=== PATIENT | male | born 1955 | race Caucasian/White ===

== ENCOUNTER 2017-12-25 18:48 | Emergency (ER) | payer OTHER ==
[~2017-12-25] VITALS: Ht 185.4 cm; Wt 117.9 kg
[2017-12-25] MEDS ORDERED: VERAPAMIL ER120 MG (19:20)
[2017-12-25] MEDS ORDERED: CRESTOR10 MG (19:20)
[2017-12-25] MEDS ORDERED: LOSARTAN POTASS25 MG (19:20)
[2017-12-25] MEDS ORDERED: METHYLPREDNISOLONE SOD SUCC 125 MG/2ML VIAL IM ONE (19:30)
== END 2017-12-25 19:25 | disposition home or self-care (01) ==
LOC: FSED 18:48
DX: L25.5 Unspecified contact dermatitis due to plants, except food (principal); I10 Essential (primary) hypertension
CPT/HCPCS: 99282; J2930

== ENCOUNTER 2024-04-22 22:12 | Emergency (ER) | payer MEDICARE, OTHER ==
[~2024-04-22] VITALS: Ht 185.4 cm; Wt 120.7 kg
[~2024-04-22 22:12] MED LIST: CRESTOR10 MG; LOSARTAN POTASS25 MG; VERAPAMIL ER120 MG
[2024-04-22 22:39] VITALS: PULSE 59; RESP 18; TEMP 100.3
[2024-04-22] MEDS: DEXAMETHASONE SOD PHOS INJ 4 MG/ML SDV IM ONE (23:37)
[2024-04-22] MEDS: LEVOFLOXACIN 500 MG TAB PO ONE (23:37)
[2024-04-22] MEDS: ALBUTEROL/IPRATROPIUM 3 ML NEB NEB ONE (23:38)
[2024-04-22] MEDS ORDERED: VENTOLIN HFA18 GM INH (23:39)
[2024-04-22] MEDS ORDERED: CORICIDIN HBP1 EAC1 PO (23:39)
[2024-04-22] MEDS ORDERED: DIPHENHYDRAMINE25 M2 PO (23:39)
[2024-04-22] MEDS ORDERED: LEVOFLOXACIN250 MG PO (23:39)
[2024-04-23 00:05] VITALS: BP 139/78; PULSE 59; RESP 18; TEMP 100.3; O2SAT 94
== END 2024-04-23 03:04 | disposition home or self-care (01) ==
LOC: FSED 22:20
DX: R50.9 Fever, unspecified (principal); R05.9 Cough, unspecified; J06.9 Acute upper respiratory infection, unspecified; J40 Bronchitis, not specified as acute or chronic
CPT/HCPCS: 0223U; 71046; 83518; 87400; 87420; 96372; 99283; J1100; 99282